=== PATIENT | male | born 1970 ===

== ENCOUNTER 2018-12-14 22:38 | Observation (INO) | payer OTHER ==
[~2018-12-14] VITALS: Ht 167.6 cm; Wt 78.0 kg
[2018-12-14] MEDS ORDERED: Zantac150 MG (22:45)
[2018-12-14 23:06] LABS: BASOPHILS ABSOLUTE AUTO 0.03 K/mm3 (0.00-0.23); BASOPHILS PERCENT AUTO 0 % (0-2); EOSINOPHILS ABSOLUTE AUTO 0.05 K/mm3 (0.00-0.68); EOSINOPHILS PERCENT AUTO 1 % (0-6); Hematocrit 40.2 % (37.0-53.0); Hemoglobin 13.8 g/dL (13.5-17.5); IMMATURE GRAN ABSOLUTE AUTO 0.02 K/mm3 (0.00-0.10); IMMATURE GRAN PERCENT AUTO 0 % (0-1); LYMPHOCYTES ABSOLUTE AUTO 2.86 K/mm3 (0.84-5.20); LYMPHOCYTES PERCENT AUTO 36 % (21-46); MONOCYTES ABSOLUTE AUTO 0.77 K/mm3 (0.16-1.47); MONOCYTES PERCENT AUTO 10 % (4-13); Mean Corpuscular HGB 29.6 pg (26.0-34.0); Mean Corpuscular HGB Conc 34.3 g/dL (31.5-36.5); Mean Corpuscular Volume 86 fL (80-100); Mean Platelet Volume 9.4 fL (9.1-12.4); NEUTROPHILS ABSOLUTE AUTO 4.26 K/mm3 (1.96-9.15); NEUTROPHILS PERCENT AUTO 53 % (41-73); Platelet Count 355 K/mm3 (150-400); RDW Coefficient Variation 12.4 % (11.7-14.2); RDW Standard Deviation 38.5 fL (35.1-46.3); Red Blood Cell Count 4.67 M/mm3 (4.30-5.90); White Blood Cell Count 7.99 K/mm3 (4.00-11.30)
[2018-12-14 23:30] LABS: Alanine Aminotransfer (ALT/SGP 31 U/L (12-78); Albumin, Blood 3.8 g/dL (3.4-5.0); Albumin/Globulin Ratio 1.2 (0.8-1.8); Alk Phos 79 U/L (50-136); Anion Gap 7 mmol/L (6-16); Aspartate Aminotrans (AST/SGOT 24 U/L (12-37); Bilirubin, Total 0.2 mg/dL (0.1-1.0); Blood Urea Nitrogen 19 mg/dL (8-24); Bun/Creatinine Ratio 18.8 (12.0-20.0); CO2, Blood 26 mmol/L (21-32); Calcium, Blood 8.7 mg/dL (8.5-10.1); Chloride, Blood 107 mmol/L (98-108); Creatinine, Blood 1.01 mg/dL (0.60-1.20); Globulin, Blood 3.2 g/dL (2.2-4.0); Glomerular Filtration Rate >60 (60-); Glucose, Blood 85 mg/dL (70-99); Potassium, Blood 3.9 mmol/L (3.5-5.5); Sodium, Blood 140 mmol/L (136-145); Troponin I <0.015 ng/mL (0.000-0.040)
--- NOTE | 2018-12-15 13:51 | NUR ---
PT ARRIVED TO THE FLOOR ON A GURNEY. PT INDEPENDENTLY TRANSFERED TO BED IN ROOM. PT ALERT AND ORIENTED. DR CLEMONS IN THE ROOM SHORTLY AFTE PT ARRIVAL. STATED THAT HE WOULD ADMIT THE PT FOR A STRESS TEST IN THE AM. ADMISSION ASSESSMENT COMPLETED. PT ATE LUNCH. PT AND SO PROVIDED WITH WATER, STATE NO ADDITIONAL NEEDS AT THIS TIME.
--- NOTE | 2018-12-15 17:31 | NUR ---
PT ARRIVED TO THIS FLOOR THIS AFTERNOON. PT PROVIDED WITH LUNCH. PT HAS BEEN INDEPENDENT IN ROOM STATING NO ADDITIONAL NEEDS. PT DENIES ANY FURTHER CHEST PAIN SINCE ADMISSION. WILL CONTINUE TO MONITOR.
--- NOTE | 2018-12-16 06:14 | NUR ---
SHIFT SUMMARY PT IS A 48 Y/O MALE, ADMITTED FOR CHEST PAIN. HE IS A&O X 4, AND INDEPENDENT IN THE ROOM. THE PT DID REPORT NEW ONSET CHEST PAIN AND HEADACHE AT APPROXIMATELY 2100. NO CHANGES RHYTHM PER TELE MONITOR OR IN VITAL SIGNS AT THAT TIME. EKG WAS UNCHANGED FROM ADMIT PER ER PHYSICIAN'S NOTE. THE HOSPITALIST GALLO GREENE WAS CONSULTED, AND PRN TYLENOL ORDERED. PT'S PAIN WAS RELIEVED AFTER ONE DOSE OF TYLENOL, WITH NO COMPLAINTS SINCE. PT SLEPT WELL THROUGH THE NIGHT. NO COMPLAINTS OF NAUSEA OR SOB. VITAL SIGNS STABLE. NO OTHER ACUTE CHANGES IN PT CONDITION NOTED. PT HAS BEEN NPO SINCE 0400 IN PREP FOR A TREAD MILL STRESS TEST THIS AM. WILL CONTINUE TO MONITOR AND TREAT PER EMAR UNTIL HAND OFF TO DAY SHIFT RN.
[2018-12-16] MEDS ORDERED: FAMO20 PO (16:49)
[2018-12-16] MEDS ORDERED: NAPR500 PO (16:50)
--- NOTE | 2018-12-16 17:27 | NUR ---
SHIFT SUMMARY PT IS A&O, LYING IN BED AT START OF SHIFT WITH S/O AT BS. NPO, WAITING TO GO FOR STRESS TEST. PT TAKEN DOWN FOR STRESS TEST AND RETURNED. DR CLEMONS TO . PT REMAINED NPO FOR ADDITIONAL TESTING. [facility] RETURNED TO TAKE PT DOWN FOR TESTING PER ORDERS. PT THEN CLEARED FOR DISCHARGE BY DR CLEMONS. PT BEING ASSISTED BY SS TO OBTAIN PCP AND FOLLOW UP OUTPT. PT CONTINUED TO DENY PAIN, JUST HUNGRY ALL DAY, UNTIL ABLE TO EAT. PT ENCOURAGED TO START ON PEPCID. D/C ORDERS PLACED AND INSTRUCTIONS DISCUSSED WITH PT. VERBALIZED UNDERSTANDING. NO C/O. ABLE TO AMBULATE SELF OUT TO CAR WITH FAMILY. DECLINED NEEDING A W/C.
== END 2018-12-16 17:04 | disposition home or self-care (01) ==
LOC: ER 22:38 → ERHOLD 22:39 → MEDS 12-15 11:58
PROVIDERS: Emergency Medicine; ADMIT Internal Medicine
DX: R07.89 Other chest pain (principal); R00.1 Bradycardia, unspecified; K21.9 Gastro-esophageal reflux disease without esophagitis; Z79.899 Other long term (current) drug therapy
CPT/HCPCS: 36415; 71046; 80053; 84484; 85025; 93005; 93010; 93017; 93306; 93350; 99285-25; G0378

== ENCOUNTER 2021-09-24 11:33 | Emergency (ER) | payer SELFPAY ==
[~2021-09-24] VITALS: Ht 162.6 cm; Wt 83.9 kg
[~2021-09-24 11:33] MED LIST: FAMO20 PO; NAPR500 PO; Zantac150 MG
[2021-09-24] MEDS ORDERED: IBUP800 PO (12:18)
== END 2021-09-24 12:36 | disposition home or self-care (01) ==
LOC: ER 11:33
DX: M25.562 Pain in left knee (principal)
CPT/HCPCS: 73562-LT

== ENCOUNTER → 2023-12-15 | Outpatient (CLI) | payer OTHER ==
[~2023-12-15] MED LIST changes: +IBUP800 PO
== END | disposition home or self-care (01) ==
LOC: LAB SHORT 10:12 → LAB 10:12
DX: R82.81 Pyuria (principal)
CPT/HCPCS: 87086

== ENCOUNTER 2024-10-07 07:13 | Day surgery (SDC) | payer OTHER ==
[~2024-10-07] VITALS: Ht 167.6 cm; Wt 91.7 kg
[2024-10-07] VITALS (12 sets, daily range): BP systolic 108–132; BP diastolic 68–93
[~2024-10-07 07:13] MED LIST changes: +ATOR40TA PO; +Aspir 8181 MG PO
--- NOTE | 2024-10-07 07:51 | NUR ---
Ambulatory in Day Surgery History, Chart, Medications and Allergies reviewed before start of procedure. Pre-Op teaching done. Pt verbalizes understanding. Patient States Post-Procedure ride home has been arranged.
--- NOTE | 2024-10-07 07:57 | NUR ---
10/07/24 0757 Darian Francois CONFIRMED AND REVIEWED H&P, MEDCICATIONS, ALLERGIES, MEDICAL HISTORY, RESPIRATORY HISTORY, VITAL SIGNS, 3-LEAD EKG, CONSENTS, AND PHYSICIAN ORDERS. PATIENT CONFIRMS NPO STATUS AND AGREES WITH SCHEDULED PROCEDURE. MONITOR INTACT WITH CONTINUOUS PULSE OXIMETRY, CAPNOGRAPHY, 3-LEAD EKG, INTERMITTENT BP. SUPPLEMENTAL O2 TO BE TITRATED THROUGHOUT PROCEDURE TO MAINTAIN O2 SATURATION ABOVE 90%. PATIENT DETERMINED TO BE ASA APPROPRIATE FOR PROPOFOL SEDATION PRIOR TO START OF PROCEDURE BY DR. FULTON.
--- NOTE | 2024-10-07 08:52 | NUR ---
Patient up to Ambulate independently. Gait steady. Discharge instructions reviewed with patient. Patient verbalizes understanding. Copy given to patient to take home. Patient States Post-Procedure ride home has been arranged. Discharged via wheelchair to private car for ride home. ALL BELONGINGS RETURNED TO PATIENT.
== END 2024-10-07 23:08 | disposition home or self-care (01) ==
LOC: ORSCMMR 07:13 → ORD 08:30 → ORSCMMR 08:30
PROVIDERS: Internal Medicine Gastroenterology
PROC: 0DBK8ZX Excision of Ascending Colon, Via Natural or Artificial Opening Endoscopic, Diagnostic (ICD-10-PCS; principal; 2024-10-07 08:30)
DX: Z12.11 Encounter for screening for malignant neoplasm of colon (principal); D12.2 Benign neoplasm of ascending colon; K21.9 Gastro-esophageal reflux disease without esophagitis; E78.00 Pure hypercholesterolemia, unspecified; Z79.82 Long term (current) use of aspirin; Z79.899 Other long term (current) drug therapy
CPT/HCPCS: 88305; J2704; J7120